=== PATIENT | female | born 1965 ===

== ENCOUNTER 2016-08-26 08:36 | Day surgery (SDC) | payer MEDICAID ==
[2016-08-19 10:10] VITALS: BMI 23.8
--- NOTE | 2016-08-26 11:45 | CP.SDSHP ---
Same Day Surgery H & P - History Proposed Procedure: US guided FNA of right thyroid nodule, left submandibular cystic nodule. Pre-Op Diagnosis: Right thyroid, left submandibular cystic lesion. - Allergies Allergies: Allergies No Known Allergies Allergy (Verified 08/19/16 10:11) - Physical Exam Vital Signs: Vital Signs 08/26/16 09:21 Temperature 97.7 F Pulse Rate 60 Respiratory 18 Rate Blood Pressure 131/72 O2 Sat by Pulse 98 Oximetry Mental Status: Alert & Oriented x3 Neuro: WNL Heart: WNL Lungs: WNL - Impression Impression: Pt with a ill defined right thyroid nodule, 2 cm. She also has a cystic submandibular mass measuring 2 cm. There is no parotid lesion. Plan US guided FNA of thyroid nodule and submandibular cyst. Pt. Evaluated Today:Candidate for Anesthesia & Procedure: No - Date & Time Date: 08/26/16 Time: 11:15 Short Stay Discharge - Short Stay Discharge Admitting Diagnosis/Reason for Visit: THYROID NODULE Disposition: HOME/ ROUTINE
--- NOTE | 2016-08-26 11:48 | PCM.SURG1 ---
Surgeon's Initial Post Op Note - Surgeon's Notes Surgeon: Anam Lunsford MD Baton Twirler: NONE Type of Anesthesia: Local Pre-Operative Diagnosis: Right thyroid nodule, left submandibular cyst. Operative Findings: Pt with a ill defined right thyroid nodule, 2 cm. She also has a cystic submandibular mass measuring 2 cm. There is no parotid lesion. Post-Operative Diagnosis: Right thyroid nodule, left submandibular cyst. Operation Performed: US guided FNA of right thyroid nodule. Four passes made into the thyroid nodule with a 25 g needle. FNA specimen sent for routine histology. US guided aspiration of left submandibular cyst. Specimen/Specimens Removed: 25 g FNA x 4 from thyroid. 2 cc of clear fluid from left submandibular cyst. Estimated Blood Loss: EBL {In ML}: 0 Blood Products Given: N/A Drains Used: No Drains Post-Op Condition: Fair Date of Surgery/Procedure: 08/26/16 Time of Surgery/Procedure: 11:40
[2016-08-26 12:00] VITALS: RESP 16; TEMP 98.8; O2SAT 100
[2016-08-26 12:42] VITALS: BP 127/67; PULSE 65
--- NOTE | 2016-08-26 14:06 | US ---
PROCEDURE: Date of Procedure: 08/26/2016 PROCEDURE: 1. Ultrasound guided FNA of right thyroid nodule, CPT 10878 2. Ultrasound guidance for FNA, 25727 Medications: 1% Lidocaine HISTORY: Enlarged right thyroid nodule. TECHNIQUE: Following informed consent and procedure time-out, a limited ultrasound patient's neck confirmed the presence of a 2.2 cm right thyroid nodule which is predominantly solid. A 2 cm cystic left submandibular lesion is also present. After the patient's neck was prepped and draped in the usual sterile fashion, the skin was anesthetized with 1% lidocaine. Ultrasound-guided fine needle aspiration was then performed of the dominant right thyroid nodule. A total of 4 passes were made into the nodule with 25 gauge needle under ultrasound guidance. The FNA specimen was sent for routine pathology. US guided FNA of the cystic left submandibular lesion was performed. 2 cc of clear fluid was removed. Post biopsy ultrasound showed no hematoma. IMPRESSION: Ultrasound-guided FNA of the dominant right thyroid nodule. US guided aspiration of left submandibular cyst.
--- NOTE | 2016-08-26 14:07 | US ---
PROCEDURE: Date of Procedure: 08/26/2016 PROCEDURE: 1. Ultrasound guided FNA of right thyroid nodule, CPT 55611 2. Ultrasound guidance for FNA, [id number] Medications: 1% Lidocaine HISTORY: Enlarged right thyroid nodule. TECHNIQUE: Following informed consent and procedure time-out, a limited ultrasound patient's neck confirmed the presence of a 2.2 cm right thyroid nodule which is predominantly solid. A 2 cm cystic left submandibular lesion is also present. After the patient's neck was prepped and draped in the usual sterile fashion, the skin was anesthetized with 1% lidocaine. Ultrasound-guided fine needle aspiration was then performed of the dominant right thyroid nodule. A total of 4 passes were made into the nodule with 25 gauge needle under ultrasound guidance. The FNA specimen was sent for routine pathology. US guided FNA of the cystic left submandibular lesion was performed. 2 cc of clear fluid was removed. Post biopsy ultrasound showed no hematoma. IMPRESSION: Ultrasound-guided FNA of the dominant right thyroid nodule. US guided aspiration of left submandibular cyst.
== END 2016-08-26 12:40 | disposition home or self-care (01) ==
LOC: C.SPRAD 08:36
PROVIDERS: ATTEND Radiology Vascular & Interventional Radiology
DX: E04.1 Nontoxic single thyroid nodule (principal)

== ENCOUNTER 2017-02-25 09:04 | Day surgery (SDC) | payer MEDICAID ==
[2016-08-19 10:10] VITALS: BMI 23.8
[2017-02-25 09:45] VITALS: RESP 18
[2017-02-25] MEDS ORDERED: Lactated Ringer's 1,000 ML IV ONE (12:00)
--- NOTE | 2017-02-25 12:11 | CP.SDSHP ---
Same Day Surgery H & P - History Proposed Procedure: US guided FNA of right thyroid nodule Pre-Op Diagnosis: Thyroid nodule - Allergies Allergies: Allergies shrimp Allergy (Verified 02/19/17 11:03) RASH - Physical Exam Vital Signs: Vital Signs 02/25/17 09:15 Temperature 97.6 F Pulse Rate 60 Respiratory 18 Rate Blood Pressure 145/79 O2 Sat by Pulse 98 Oximetry Mental Status: Alert & Oriented x3 - Impression Impression: Pt with a 2 cm right thyroid nodule. Plan US guided FNA of right thyroid nodule Pt. Evaluated Today:Candidate for Anesthesia & Procedure: No Short Stay Discharge - Short Stay Discharge Admitting Diagnosis/Reason for Visit: THYROID NODULE
--- NOTE | 2017-02-25 12:12 | PCM.SURG1 ---
Surgeon's Initial Post Op Note - Surgeon's Notes Surgeon: Anam Lunsford MD [employer] Systems Manager: NONE Type of Anesthesia: Local Pre-Operative Diagnosis: right thyroid nodule Operative Findings: Solid 2 cm right THyroid nodule Post-Operative Diagnosis: right thyroid nodule Operation Performed: US guided FNA of right thyroid nodule Specimen/Specimens Removed: 25 g FNA x 4 Estimated Blood Loss: EBL {In ML}: 0 Blood Products Given: N/A Drains Used: No Drains Post-Op Condition: Good Date of Surgery/Procedure: 02/25/17 Time of Surgery/Procedure: 12:10
[2017-02-25 12:36] VITALS: BP 133/70; PULSE 64; TEMP 98; O2SAT 100
--- NOTE | 2017-03-01 10:33 | US ---
PROCEDURE: Date of Procedure: 02/25/2017 PROCEDURE: 1. Ultrasound guided FNA of right thyroid nodule, CPT 49169 2. Ultrasound guidance for FNA, 80263 Medications: 3cc % Lidocaine HISTORY: Enlarged right thyroid nodule. TECHNIQUE: Following informed consent and procedure time-out, a limited ultrasound patient's neck confirmed the presence of a 1.3 cm complex right thyroid nodule which is predominantly solid. After the patient's neck was prepped and draped in the usual sterile fashion, the skin was anesthetized with 1% lidocaine. Ultrasound-guided fine needle aspiration was then performed of the dominant right thyroid nodule. A total of 4 passes were made into the nodule with 25 gauge needle under ultrasound guidance. The FNA specimen was sent for routine pathology. Post biopsy ultrasound showed no hematoma. IMPRESSION: Ultrasound-guided FNA of the dominant right thyroid nodule.
== END 2017-02-25 15:00 | disposition home or self-care (01) ==
LOC: C.SPRAD 09:04
PROVIDERS: ATTEND Radiology Vascular & Interventional Radiology
DX: E04.1 Nontoxic single thyroid nodule (principal)
CPT/HCPCS: 10022; 76942; 88173; J7120